=== PATIENT | female | born 1995 | race Caucasian/White ===

== ENCOUNTER 2016-07-01 01:28 | Emergency (ER) | payer BC ==
[~2016-07-01] VITALS: Ht 175.3 cm; Wt 76.3 kg
[2016-07-01 02:32] LABS: HEMATOCRIT 38.6 % (36.0-46.0); MCHC 33.7 G/DL (30.0-36.0); MCV 91.9 FL (83-99); MEAN PLAT.VOLUME 9.9 uM^3 (9.5-12.4); PLATELET COUNT 186 K/uL (156-360); RBC DIS.WIDTH-CV 13.1 % (11.8-14.6); RBC DIS.WIDTH-SD 43.2 % (39-53); WHITE BLOOD COUNT 5.1 K/uL (4.1-10.2)
[2016-07-01 02:42] LABS: CHLORIDE 107 mEq/L (99-109); POTASSIUM 3.9 mEq/L (3.7-5.4); SODIUM 139 mEq/L (136-147)
[2016-07-01 02:44] LABS: GLUCOSE 112 mg/dL (70-99)
[2016-07-01 02:46] LABS: ANION GAP 8 MEQ/L (2-14); TOTAL BILIRUBIN 0.5 mg/dL (0.0-1.0)
[2016-07-01 02:48] LABS: ALKALINE PHOSPHATASE 68 IU/L (3-129); GFR ESTIMATE (CALCULATED) > 59 mL/min/
[2016-07-01 02:49] LABS: UREA NITROGEN (BUN) 9 mg/dL (9-23)
[2016-07-01 02:57] LABS: QUANTITATIVE HCG < 4.0 MIU/ML
[2016-07-01 03:17] LABS: ADD MIUA? YES; BILIRUBIN NEGATIVE; BLOOD NEGATIVE; COLOR YELLOW ((YELLOW)); GLUCOSE (STRIP) NEGATIVE; KETONES NEGATIVE; LEUKOCYTES TRACE; NITRITE NEGATIVE; PH, URINE 6.5 (5-8); PROTEIN (STRIP) NEGATIVE; SPECIFIC GRAVITY 1.014 (1.000-1.030); UROBILINOGEN 0.2 MG/DL (0.2-1.0)
[2016-07-01 03:31] LABS: BACTERIA RARE; CASTS NONE SEEN /LPF; CRYSTALS NONE SEEN; EPITHELIAL CELLS RARE; MUCUS NONE SEEN; RED BLOOD CELLS RARE /HPF (0-5); UCUL ADDED? NO; WHITE BLOOD CELLS 0-5 /HPF (0-5)
[2016-07-01 08:45] LABS: INFLUENZA A VIRAL ANTIGEN NEGATIVE; INFLUENZA B VIRAL ANTIGEN NEGATIVE
[2016-07-01] MEDS ORDERED: CYCLOBENZAPRINE5 MG PO (09:10)
[2016-07-01] MEDS ORDERED: ESCITALOPRAM OX10 MG PO (09:10)
[2016-07-01] MEDS ORDERED: TRI-ESTARYLLA1 EACH PO (09:10)
[2016-07-01] MEDS ORDERED: ZOFRAN ODT4 MG PO (09:15)
[2016-07-01] MEDS ORDERED: BENTYL20 MG PO (09:15)
[2016-07-01 09:25] VITALS: BP 116/52
== END 2016-07-01 09:30 | disposition home or self-care (01) ==
LOC: EME 01:28
PROVIDERS: Nurse Practitioner Family
DX: A08.4 Viral intestinal infection, unspecified (principal); M54.5 Low back pain; Z88.1 Allergy status to other antibiotic agents
CPT/HCPCS: 80053; 81003; 84702; 85027; 87502; 99281; 99284; J1885